=== PATIENT | female | born 1980 | race Caucasian/White ===

== ENCOUNTER → 2019-12-04 10:34 | Outpatient (CLI) | payer OTHER, SELFPAY ==
--- NOTE | 2019-12-04 | DI.RAD.S_ITS ---
PROCEDURE: XR KNEE RT 1TO2V INDICATIONS: RIGHT KNEE PAIN TECHNIQUE: 3 views of the knee were acquired. COMPARISON: None. FINDINGS: Bones: No fractures or dislocations. No suspicious bony lesions. Soft tissues: No joint effusion. No suspicious soft tissue calcifications. IMPRESSION: No trauma found. Dictated by: Darek Navarro M.D. on 12/04/2019 at 11:25 Approved by: Darek Navarro M.D. on 12/04/2019 at 11:25
== END ==
PROVIDERS: Referring Provider Physician Assistant Medical; Visit Provider Physician Assistant Medical
DX: M25.561 Pain in right knee (principal)
CPT/HCPCS: 73560

== ENCOUNTER → 2020-01-07 18:33 | Outpatient (CLI) | payer OTHER, SELFPAY ==
--- NOTE | 2020-01-07 | DI.MRI.S_ITS ---
PROCEDURE: MR KNEE RT WO CON INDICATIONS: Pain in right knee TECHNIQUE: Noncontrast sagittal PD fast spin echo and T2 fast spin echo with fat saturation, sagittal 3-D FLASH with fat saturation; coronal T1 spin echo and PD fast spin echo with fat saturation, and axial PD fast spin echo with fat saturation through the knee. COMPARISON: [facility], CR, XR KNEE RT 1TO2V, 12/04/2019, 9:58. FINDINGS: Image quality: Excellent. Menisci: Medial extrusion of the medial meniscus. Linear and amorphous high signal intensity within the medial meniscal body and posterior horn is present, demonstrate superior and inferior articular surface extension, indicating complex tearing. Lateral meniscus is intact. Cruciate ligaments: The anterior and posterior cruciate ligaments appear intact. Medial structures: The medial collateral ligament appears intact. Visualized portions of the pes anserinus tendons appear normal. Small amount of medial bursal fluid. Lateral structures: The lateral collateral ligament, long and short heads of the biceps femoris tendon appear intact. The popliteus tendon appears normal. Iliotibial band appears normal. Anterior structures: The quadriceps and patellar tendons appear intact. Mild T2 signal elevation within the patellar tendon at the patellar insertion site. Patellar alignment is normal. No femoral trochlear dysplasia or ventral trochlear prominence. No edema in the infrapatellar fat pad. Bones and cartilage: No bone marrow contusions or fractures. Mild diffuse articular cartilage loss overlies the weightbearing aspects of the medial femoral condyle and medial tibial plateau. Joint space: There is a small knee joint effusion. No Jordan's cyst. Normal appearing synovial plicae are incidentally noted. IMPRESSION: 1. Medial meniscal tear. 2. Small knee joint effusion. 3. Medial bursitis. 4. Mild medial compartment articular cartilage loss. Dictated by: Ivy Galdamez M.D. on 01/08/2020 at 8:30 Approved by: Ivy Galdamez M.D. on 01/08/2020 at 8:32
== END ==
PROVIDERS: Referring Provider Physician Assistant Medical; Visit Provider Physician Assistant Medical
DX: M25.561 Pain in right knee (principal); S83.241A Other tear of medial meniscus, current injury, right knee, initial encounter; M25.461 Effusion, right knee; M71.561 Other bursitis, not elsewhere classified, right knee
CPT/HCPCS: 73721